=== PATIENT | male | born 1985 | race Caucasian/White ===

== ENCOUNTER 2017-04-01 18:08 | Emergency (ER) | payer OTHER ==
[~2017-04-01] VITALS: Ht 182.9 cm; Wt 91.0 kg
[2017-04-01] MEDS ORDERED: IBUPROFEN 800 MG TABLET PO STA (18:56)
[2017-04-01] MEDS ORDERED: LORazepam 1MG TABLET PO ONE (19:00)
[2017-04-01] MEDS ORDERED: IBUPROFEN 200 MG TABLET PO STA (19:01)
[2017-04-01 19:09] LABS: DAU SCREEN DISCLAIMER
[2017-04-01 19:12] LABS: HEMATOCRIT 45.8 % (39.2-51.8); HEMOGLOBIN 15.4 g/dL (13.7-18.0); WHITE BLOOD COUNT 8.2 x10^3/uL (3.4-10)
[2017-04-01] MEDS ORDERED: LORazepam 1MG TABLET ONE (19:16)
[2017-04-01 19:21] LABS: BLOOD UREA NITROGEN 10 mg/dL (7-18)
[2017-04-01 19:22] LABS: ACETAMINOPHEN < 2 mcg/mL (10-30)
[2017-04-01] MEDS ORDERED: PLEASE ENTER ALLERGIES MC SCH ×2 (19:30)
[2017-04-01 23:38] VITALS: BP 132/89
== END 2017-04-02 02:42 | disposition home or self-care (01) ==
LOC: ED 20:59
DX: F32.9 Major depressive disorder, single episode, unspecified (principal)
CPT/HCPCS: 36415; 80048; 80307; 80329; 81003; 82040; 85025; 99284; G0479; G0480

== ENCOUNTER 2017-04-18 12:55 | Observation (INO) | payer MEDICAID, OTHER ==
[~2017-04-18] VITALS: Ht 182.9 cm; Wt 90.8 kg
[2017-04-18] MEDS ORDERED: SODIUM CHLORIDE 0.9% 1,000 ML IV ONE ×2 (13:11→15:38)
[2017-04-18] MEDS ORDERED: SODIUM CHLORIDE 0.9% 1,000ML IVBOLUS ONE (13:30)
[2017-04-18 13:41] LABS: HEMATOCRIT 43.9 % (39.2-51.8); HEMOGLOBIN 14.7 g/dL (13.7-18.0); WHITE BLOOD COUNT 8.3 x10^3/uL (3.4-10)
[2017-04-18 13:47] LABS: BLOOD UREA NITROGEN 10 mg/dL (7-18)
[2017-04-18 13:50] LABS: ASPARTATE AMINO TRANSFERASE 20 U/L (15-37)
[2017-04-18 13:51] LABS: ACETAMINOPHEN < 2 mcg/mL (10-30)
[2017-04-18] MEDS ORDERED: PRAZ2CAP2 PO (15:16)
[2017-04-18] MEDS ORDERED: CITA20TA5 PO (15:16)
[2017-04-18] MEDS ORDERED: QUET200T PO (15:16)
[2017-04-18] MEDS ORDERED: QUET100T PO (15:16)
[2017-04-18] MEDS ORDERED: LEVE500T8 PO (15:16)
[2017-04-18] MEDS ORDERED: SODIUM CHLORIDE FLUSH 10ML SYR IVF PRN (16:00)
[2017-04-18] MEDS: SODIUM CHLORIDE 0.9% 1,000 ML IV SCH (16:03)
[2017-04-18] MEDS ORDERED: METOCLOPRAMIDE 5 MG/ML, 2ML IVPush PRN (16:30)
[2017-04-18] MEDS ORDERED: ONDANSETRON 2MG/ML, 2ML IVPush PRN (16:30)
[2017-04-18 18:19] LABS: DAU SCREEN DISCLAIMER
[2017-04-18 21:26] VITALS: BP 144/87
[2017-04-19 01:27] VITALS: BP 122/82
[2017-04-19] MEDS: SODIUM CHLORIDE 0.9% 1,000 ML IV SCH ×4 (02:06→21:16)
[2017-04-19 05:19] LABS: HEMOGLOBIN 13.8 g/dL (13.7-18.0); WHITE BLOOD COUNT 9.6 x10^3/uL (3.4-10)
[2017-04-19 05:31] LABS: ASPARTATE AMINO TRANSFERASE 16 U/L (15-37); BLOOD UREA NITROGEN 10 mg/dL (7-18)
[2017-04-19 09:00] VITALS: BP 136/85
[2017-04-19 14:47] VITALS: BP 125/78
[2017-04-19] MEDS: ACETAMINOPHEN 325 MG TABLET PO PRN (16:16)
[2017-04-19 19:40] VITALS: BP 138/74
[2017-04-19] MEDS: KETOROLAC 30 MG/1 ML IVPush PRN (21:16)
[2017-04-20] MEDS ORDERED: morphine SULFATE 10 MG/ML, 1ML IVPush ONE (01:30)
[2017-04-20 03:30] VITALS: BP 129/83
[2017-04-20] MEDS: SODIUM CHLORIDE 0.9% 1,000 ML IV SCH ×3 (03:44→18:22)
[2017-04-20] MEDS: KETOROLAC 30 MG/1 ML IVPush PRN ×4 (03:44→22:36)
[2017-04-20] MEDS ORDERED: POTASSIUM PHOSPHATE 44 MEQ in SODIUM CHLORIDE 0.9% 500 ML IV ONE (07:30)
[2017-04-20] MEDS ORDERED: AZITHROMYCIN 500 MG TABLET PO ONE (07:30)
[2017-04-20 08:12] VITALS: BP 138/88
[2017-04-20 08:19] LABS: HEMOGLOBIN 12.6 g/dL (13.7-18.0); WHITE BLOOD COUNT 9.6 x10^3/uL (3.4-10)
[2017-04-20 08:29] LABS: ASPARTATE AMINO TRANSFERASE 19 U/L (15-37); BLOOD UREA NITROGEN 4 mg/dL (7-18)
[2017-04-20] MEDS: OXYcodone IR 5MG TABLET PO PRN ×3 (08:56→21:02)
[2017-04-20] MEDS: AMPICILLIN/SULBACTAM 3 GM in SODIUM CHLORIDE 0.9% 100 ML IV SCH ×3 (08:56→21:02)
[2017-04-20 12:53] VITALS: BP 149/96
[2017-04-20] MEDS: ACETAMINOPHEN 325 MG TABLET PO PRN (13:09)
[2017-04-20 15:00] LABS: HEMATOCRIT 40.6 % (39.2-51.8); HEMOGLOBIN 13.7 g/dL (13.7-18.0); WHITE BLOOD COUNT 11.3 x10^3/uL (3.4-10)
[2017-04-20 19:01] VITALS: BP 149/80
[2017-04-21] MEDS: SODIUM CHLORIDE 0.9% 1,000 ML IV SCH ×2 (01:16→08:20)
[2017-04-21 02:44] VITALS: BP 143/78
[2017-04-21] MEDS: OXYcodone IR 5MG TABLET PO PRN (03:05)
[2017-04-21] MEDS: AMPICILLIN/SULBACTAM 3 GM in SODIUM CHLORIDE 0.9% 100 ML IV SCH ×2 (03:05→09:00)
[2017-04-21] MEDS: KETOROLAC 30 MG/1 ML IVPush PRN ×2 (05:30→12:18)
[2017-04-21 05:37] LABS: HEMATOCRIT 38.9 % (39.2-51.8); HEMOGLOBIN 13.2 g/dL (13.7-18.0)
[2017-04-21 06:17] LABS: BLOOD UREA NITROGEN 3 mg/dL (7-18)
[2017-04-21 07:36] VITALS: BP 138/85
[2017-04-21] MEDS ORDERED: KETOROLAC 30 MG/1 ML IVPush PRN (09:00)
[2017-04-21] MEDS: AZITHROMYCIN 250 MG TABLET PO SCH (09:10)
[2017-04-21 14:19] VITALS: BP 143/85
[2017-04-21] MEDS: ACETAMINOPHEN 325 MG TABLET PO PRN ×2 (15:34→21:44)
[2017-04-21] MEDS ORDERED: POLYETHYLENE GLYCOL 17 GM PACKET NG PRN (18:30)
[2017-04-21 19:25] VITALS: BP 118/73
[2017-04-21] MEDS: LORazepam 1MG TABLET PO PRN (21:44)
[2017-04-21] MEDS: KETOROLAC 30 MG/1 ML IM PRN (22:20)
[2017-04-22 08:00] VITALS: BP 142/73
[2017-04-22] MEDS: AZITHROMYCIN 250 MG TABLET PO SCH (08:16)
[2017-04-22] MEDS: ACETAMINOPHEN 325 MG TABLET PO PRN ×2 (08:16→15:50)
[2017-04-22] MEDS: LORazepam 1MG TABLET PO PRN ×2 (08:17→15:50)
[2017-04-22] MEDS: BENZONATATE 100 MG CAPSULE PO SCH ×3 (09:00→20:31)
[2017-04-22] MEDS: KETOROLAC 30 MG/1 ML IM PRN ×2 (10:03→15:51)
[2017-04-22] MEDS: LEVETIRACETAM 500 MG TABLET PO SCH ×2 (10:30→20:31)
[2017-04-22] MEDS ORDERED: ALBUTEROL SULFATE 2.5 MG/3 ML NPPB PRN (11:00)
[2017-04-22 19:18] VITALS: BP 134/76
[2017-04-23] MEDS: BENZONATATE 100 MG CAPSULE PO SCH ×3 (07:37→20:19)
[2017-04-23] MEDS: AZITHROMYCIN 250 MG TABLET PO SCH (07:38)
[2017-04-23] MEDS: ACETAMINOPHEN 325 MG TABLET PO PRN (07:38)
[2017-04-23] MEDS: LORazepam 1MG TABLET PO PRN ×2 (07:39→21:01)
[2017-04-23] MEDS: KETOROLAC 30 MG/1 ML IM PRN ×3 (07:39→18:26)
[2017-04-23] MEDS ORDERED: ZIPRASIDONE 20 MG INJ IM PRN ×2 (08:00→19:00)
[2017-04-23 08:10] VITALS: BP 168/80
[2017-04-23] MEDS: LEVETIRACETAM 500 MG TABLET PO SCH ×2 (09:15→20:20)
[2017-04-23] MEDS: ZIPRASIDONE 20MG CAPSULE PO PRN (16:48)
[2017-04-23] MEDS ORDERED: OXYcodone/APAP 10/325MG TABLET PO ONE ×2 (19:00)
[2017-04-23] MEDS ORDERED: POLYETHYLENE GLYCOL 17 GM PACKET NG PRN (19:00)
[2017-04-23 19:29] VITALS: BP 133/76
[2017-04-23] MEDS: ALBUTEROL SULFATE 2.5 MG/3 ML NPPB PRN (19:40)
[2017-04-24 08:15] VITALS: BP 98/65
[2017-04-24] MEDS: BENZONATATE 100 MG CAPSULE PO SCH ×3 (09:00→21:35)
[2017-04-24] MEDS: LEVETIRACETAM 500 MG TABLET PO SCH ×2 (09:00→21:35)
[2017-04-24] MEDS: AZITHROMYCIN 250 MG TABLET PO SCH (09:00)
[2017-04-24] MEDS: ACETAMINOPHEN 325 MG TABLET PO PRN ×2 (12:28→18:21)
[2017-04-24] MEDS: LORazepam 1MG TABLET PO PRN ×2 (12:28→21:35)
[2017-04-24] MEDS: ZIPRASIDONE 20MG CAPSULE PO PRN ×2 (12:28→18:21)
[2017-04-24 18:21] VITALS: BP 124/57
[2017-04-25] MEDS: ZIPRASIDONE 20MG CAPSULE PO PRN ×2 (01:16→22:11)
[2017-04-25] MEDS: ACETAMINOPHEN 325 MG TABLET PO PRN ×3 (01:17→22:11)
[2017-04-25] MEDS: KETOROLAC 30 MG/1 ML IM PRN ×2 (01:26→17:58)
[2017-04-25 08:00] VITALS: BP 116/67
[2017-04-25] MEDS: AZITHROMYCIN 250 MG TABLET PO SCH (09:00)
[2017-04-25] MEDS: BENZONATATE 100 MG CAPSULE PO SCH ×3 (09:54→20:08)
[2017-04-25] MEDS: LEVETIRACETAM 500 MG TABLET PO SCH ×2 (09:54→20:08)
[2017-04-25] MEDS: LORazepam 1MG TABLET PO PRN ×2 (13:06→22:11)
[2017-04-25 19:23] VITALS: BP 123/90
[2017-04-26 08:09] VITALS: BP 116/78
[2017-04-26] MEDS: AZITHROMYCIN 250 MG TABLET PO SCH (08:28)
[2017-04-26] MEDS: LEVETIRACETAM 500 MG TABLET PO SCH ×2 (08:28→21:36)
[2017-04-26] MEDS: BENZONATATE 100 MG CAPSULE PO SCH ×3 (08:28→21:36)
[2017-04-26] MEDS: ACETAMINOPHEN 325 MG TABLET PO PRN (08:49)
[2017-04-26] MEDS: ZIPRASIDONE 20MG CAPSULE PO PRN (14:09)
[2017-04-26] MEDS: LORazepam 1MG TABLET PO PRN ×2 (14:44→21:36)
[2017-04-26 19:56] VITALS: BP 104/61
[2017-04-26] MEDS: ALBUTEROL SULFATE 2.5 MG/3 ML NPPB PRN (22:12)
[2017-04-27] MEDS: ACETAMINOPHEN 325 MG TABLET PO PRN (06:39)
[2017-04-27] MEDS: LORazepam 1MG TABLET PO PRN (06:39)
[2017-04-27 08:00] VITALS: BP 113/61
[2017-04-27] MEDS: LEVETIRACETAM 500 MG TABLET PO SCH (08:23)
[2017-04-27] MEDS: BENZONATATE 100 MG CAPSULE PO SCH (08:24)
[2017-05-01] MEDS ORDERED: QUET200T4 PO (20:05)
[2017-05-02] MEDS ORDERED: CITA20TA9 PO (18:07)
[2017-05-02] MEDS ORDERED: PRAZ5CAP2 PO (18:07)
== END 2017-04-27 15:45 | disposition home or self-care (01) ==
LOC: ED 15:37 → INTOOBSV 15:38 → EDIP 15:38 → ED 15:58 → 5SO 21:06 → 4WST 04-19 19:41 → 3E 04-21 13:40
PROVIDERS: ADMIT Internal Medicine; ATTEND Family Medicine
DX: T43.222A Poisoning by selective serotonin reuptake inhibitors, intentional self-harm, initial encounter (principal); R07.81 Pleurodynia; F31.9 Bipolar disorder, unspecified; F41.1 Generalized anxiety disorder; I10 Essential (primary) hypertension; J18.1 Lobar pneumonia, unspecified organism; Y92.89 Other specified places as the place of occurrence of the external cause; Z91.5 Personal history of self-harm; Z79.899 Other long term (current) drug therapy
CPT/HCPCS: 36415; 71010; 80048; 80053; 80307; 80329; 81003; 83735; 84100; 84443; 85025; 93005; 94640; 96361; 96365; 96366; 96367; 96372; 96375; 96376; 99285; G0378; J0295; J1885; J2270; J7030; J7040; J7613; G0479; G0480

== ENCOUNTER 2017-05-22 09:39 | Emergency (ER) | payer MEDICAID, OTHER ==
[~2017-05-22] VITALS: Ht 185.4 cm; Wt 89.0 kg
[~2017-05-22 09:39] MED LIST: CITA20TA5 PO; CITA20TA9 PO; LEVE500T8 PO; PRAZ2CAP2 PO; PRAZ5CAP2 PO; QUET100T PO; QUET200T PO; QUET200T4 PO
[2017-05-22] MEDS ORDERED: CLON-365 PO (10:14)
[2017-05-22] MEDS ORDERED: ARIP5TAB13 PO (10:14)
[2017-05-22] MEDS ORDERED: PRAZ5CAP2 PO (10:14)
[2017-05-22 11:39] VITALS: BP 130/77
== END 2017-05-22 11:41 | disposition home or self-care (01) ==
LOC: ED 11:07
DX: N48.89 Other specified disorders of penis (principal); G89.11 Acute pain due to trauma
CPT/HCPCS: 99283

== ENCOUNTER 2018-02-02 19:00 | Emergency (ER) | payer SELFPAY ==
[~2018-02-02] VITALS: Ht 182.9 cm; Wt 87.8 kg
[~2018-02-02 19:00] MED LIST changes: +ARIP5TAB13 PO; -CITA20TA5 PO; +CITA20TA6 PO; +CLON1TAB4 PO
[2018-02-02 19:07] VITALS: BP 150/81
[2018-02-02] MEDS ORDERED: SODIUM CHLORIDE 0.9% 1,000ML IVBOLUS ONE (19:30)
[2018-02-02] MEDS ORDERED: ACETAMINOPHEN 500 MG TABLET PO ONE (19:30)
[2018-02-02] MEDS ORDERED: ACETAMINOPHEN 500 MG TABLET ONE (19:57)
[2018-02-02] MEDS ORDERED: CEFTRIAXONE 1,000 MG IM ONE (20:00)
[2018-02-02] MEDS ORDERED: AZITHROMYCIN 500 MG TABLET PO ONE (20:00)
[2018-02-02 20:03] LABS: BASOPHILS # (AUTO) 0.06 x10^3/uL (0-0.1); BASOPHILS % (AUTO) 1 % (0-1); EOSINOPHILS % (AUTO) 1 % (1-7); LYMPHOCYTES # (AUTO) 1.23 x10^3/uL (1-3.4); LYMPHOCYTES % (AUTO) 12 % (22-44); MD NO; MEAN CORPUSCULAR HGB CONC 34.5 g/dL (33.2-36.2); MEAN CORPUSCULAR VOLUME 89.8 fL (81-97); MEAN PLATELET VOLUME 7.2 fL (7.4-10.4); MONOCYTES # (AUTO) 0.59 x10^3/uL (0.2-0.8); MONOCYTES % (AUTO) 6 % (2-9); NEUTROPHILS # (AUTO) 7.97 x10^3/uL (1.8-6.8); NEUTROPHILS % (AUTO) 80 % (42-75); PLATELET COUNT 391 x10^3/uL (130-400); RED BLOOD COUNT 4.48 x10^6/uL (4.38-5.82); RED CELL DISTRIBUTION WIDTH 14.8 % (9.4-14.8)
[2018-02-02] MEDS ORDERED: CEFTRIAXONE 250 MG ONE ×2 (20:09→20:15)
[2018-02-02] MEDS ORDERED: AZITHROMYCIN 500 MG TABLET ONE (20:10)
[2018-02-02] MEDS ORDERED: LIDOCAINE-MPF 1%, 2ML ONE ×2 (20:11→20:15)
[2018-02-02 20:12] LABS: ALBUMIN 3.4 g/dL (3.4-5.0); ANION GAP 7 mmol/L (5-15); CALCIUM 9.7 mg/dL (8.5-10.1); CHLORIDE 108 mmol/L (98-107); CREATININE 1.09 mg/dL (0.7-1.3)
[2018-02-02] MEDS ORDERED: CEFTRIAXONE 250 MG in SODIUM CHLORIDE 0.9% 50 ML IVPB ONE (21:00)
[2018-02-02 21:04] LABS: CULTURE INDICATED? YES; MICROSCOPIC INDICATED
== END 2018-02-02 21:59 | disposition home or self-care (01) ==
LOC: ED 21:53
DX: R31.0 Gross hematuria (principal); F31.9 Bipolar disorder, unspecified; F41.1 Generalized anxiety disorder
CPT/HCPCS: 36415; 80048; 81001; 82040; 85025; 87077; 87086; 87491; 87591; 96365; 99285; J7030; 87186; J0696

== ENCOUNTER 2018-02-05 22:06 | Emergency (ER) | payer MEDICAID ==
[~2018-02-05] VITALS: Ht 182.9 cm; Wt 85.0 kg
[2018-02-05 22:18] VITALS: BP 122/76
[2018-02-05 23:08] LABS: CULTURE INDICATED? YES; MICROSCOPIC INDICATED
[2018-02-05] MEDS ORDERED: KETOROLAC 30 MG/1 ML IM ONE (23:30)
[2018-02-05 23:39] LABS: AMPHETAMINE SCREEN, URINE Negative (Negative); BARBITURATE SCREEN, URINE Negative (Negative); BENZODIAZEPINE SCREEN, URINE Positive (Negative); CANNABINOID SCREEN, URINE Positive (Negative); COCAINE SCREEN, URINE Negative (Negative); METHADONE SCREEN, URINE Negative (Negative); OPIATE SCREEN, URINE Negative (Negative)
[2018-02-05] MEDS ORDERED: KETOROLAC 30 MG/1 ML ONE (23:48)
[2018-02-06 00:08] LABS: ALANINE AMINOTRANSFERASE 62 U/L (12-78); ANION GAP 7 mmol/L (5-15); CALCIUM 10.1 mg/dL (8.5-10.1); CHLORIDE 106 mmol/L (98-107); CREATININE 0.99 mg/dL (0.7-1.3)
[2018-02-06 00:09] LABS: ALKALINE PHOSPHATASE 192 U/L (45-117); BILIRUBIN,TOTAL 0.2 mg/dL (0.2-1.0)
[2018-02-06 00:11] LABS: BASOPHILS # (AUTO) 0.07 x10^3/uL (0-0.1); BASOPHILS % (AUTO) 1 % (0-1); EOSINOPHILS # (AUTO) 0.07 x10^3/uL (0-0.4); EOSINOPHILS % (AUTO) 1 % (1-7); LYMPHOCYTES % (AUTO) 10 % (22-44); MD NO; MEAN CORPUSCULAR HEMOGLOBIN 30.1 pg (27.5-34.5); MEAN CORPUSCULAR HGB CONC 33.9 g/dL (33.2-36.2); MEAN CORPUSCULAR VOLUME 88.8 fL (81-97); MEAN PLATELET VOLUME 6.9 fL (7.4-10.4); MONOCYTES # (AUTO) 0.51 x10^3/uL (0.2-0.8); MONOCYTES % (AUTO) 6 % (2-9); NEUTROPHILS # (AUTO) 7.24 x10^3/uL (1.8-6.8); NEUTROPHILS % (AUTO) 82 % (42-75); PLATELET COUNT 559 x10^3/uL (130-400); RED BLOOD COUNT 5.15 x10^6/uL (4.38-5.82); RED CELL DISTRIBUTION WIDTH 14.4 % (9.4-14.8)
[2018-02-06] MEDS ORDERED: PHENAZOPYRIDINE 200 MG TABLET ONE (00:28)
[2018-02-06] MEDS ORDERED: PHENAZOPYRIDINE 200 MG TABLET PO ONE (00:30)
== END 2018-02-06 02:06 | disposition home or self-care (01) ==
LOC: ED 23:19
DX: R31.0 Gross hematuria (principal); F17.200 Nicotine dependence, unspecified, uncomplicated; Z79.899 Other long term (current) drug therapy
CPT/HCPCS: 36415; 80053; 80307; 81001; 85025; 87086; 96372; 99284; J1885

== ENCOUNTER 2018-02-20 18:19 | Emergency (ER) | payer MEDICAID ==
[~2018-02-20] VITALS: Ht 182.9 cm; Wt 98.2 kg
[2018-02-20] MEDS ORDERED: HYDROmorphone 1 MG/ML, 1ML IM ONE (19:00)
[2018-02-20] MEDS ORDERED: SODIUM CHLORIDE 0.9% 1,000 ML IV ONE (19:13)
[2018-02-20] MEDS ORDERED: SODIUM CHLORIDE FLUSH 10ML SYR IVF ONE (19:30)
[2018-02-20 19:34] LABS: BASOPHILS # (AUTO) 0.02 x10^3/uL (0-0.1); BASOPHILS % (AUTO) 0 % (0-1); EOSINOPHILS # (AUTO) 0.04 x10^3/uL (0-0.4); EOSINOPHILS % (AUTO) 1 % (1-7); LYMPHOCYTES # (AUTO) 0.99 x10^3/uL (1-3.4); LYMPHOCYTES % (AUTO) 12 % (22-44); MD NO; MEAN CORPUSCULAR HEMOGLOBIN 30.9 pg (27.5-34.5); MEAN CORPUSCULAR HGB CONC 34.2 g/dL (33.2-36.2); MEAN CORPUSCULAR VOLUME 90.1 fL (81-97); MEAN PLATELET VOLUME 6.9 fL (7.4-10.4); MONOCYTES # (AUTO) 0.63 x10^3/uL (0.2-0.8); MONOCYTES % (AUTO) 7 % (2-9); NEUTROPHILS # (AUTO) 6.85 x10^3/uL (1.8-6.8); NEUTROPHILS % (AUTO) 80 % (42-75); PLATELET COUNT 489 x10^3/uL (130-400); RED BLOOD COUNT 4.67 x10^6/uL (4.38-5.82); RED CELL DISTRIBUTION WIDTH 15.2 % (9.4-14.8)
[2018-02-20 19:43] LABS: ANION GAP 9 mmol/L (5-15); CALCIUM 9.3 mg/dL (8.5-10.1); CHLORIDE 106 mmol/L (98-107); CREATININE 0.95 mg/dL (0.7-1.3)
[2018-02-20] MEDS ORDERED: LIDOCAINE-MPF 2%, 2ML ONE ×2 (19:44→20:23)
[2018-02-20] MEDS ORDERED: NALOXONE 1 MG/ML, 2ML ONE (20:01)
[2018-02-20] MEDS ORDERED: MIDAZOLAM 1 MG/ML, 5ML ONE ×2 (20:01→20:38)
[2018-02-20] MEDS ORDERED: FLUMAZENIL 0.1 MG/1 ML, 5ML ONE (20:01)
[2018-02-20] MEDS ORDERED: FENTANYL PF 100 MCG/2ML ONE ×2 (20:01→20:38)
[2018-02-20] MEDS ORDERED: VISIPAQUE 270 MG/ML, 50ML BOTTLE ONE (21:11)
[2018-02-20 21:33] LABS: CULTURE INDICATED? NO; MICROSCOPIC NOT IND
[2018-02-20 21:45] VITALS: BP 118/69
== END 2018-02-20 21:56 | disposition home or self-care (01) ==
LOC: ED 20:24
DX: R33.9 Retention of urine, unspecified (principal)
CPT/HCPCS: 36415; 51703; 75989; 80048; 81003; 82040; 85025; 99156; 99157; 99285; C1725; C1769; J2250; J3010; J3490; J7030; Q9966; J2310

== ENCOUNTER 2018-03-12 13:56 | Emergency (ER) | payer MEDICAID ==
[~2018-03-12] VITALS: Ht 177.8 cm; Wt 82.0 kg
[2018-03-12] MEDS ORDERED: LEVE10007 PO (14:41)
[2018-03-12 14:45] LABS: BASOPHILS # (AUTO) 0.02 x10^3/uL (0-0.1); BASOPHILS % (AUTO) 1 % (0-1); EOSINOPHILS # (AUTO) 0.16 x10^3/uL (0-0.4); EOSINOPHILS % (AUTO) 3 % (1-7); LYMPHOCYTES # (AUTO) 1.04 x10^3/uL (1-3.4); LYMPHOCYTES % (AUTO) 20 % (22-44); MD NO; MEAN CORPUSCULAR HEMOGLOBIN 30.3 pg (27.5-34.5); MEAN CORPUSCULAR HGB CONC 34.1 g/dL (33.2-36.2); MEAN CORPUSCULAR VOLUME 89.1 fL (81-97); MEAN PLATELET VOLUME 6.7 fL (7.4-10.4); MONOCYTES # (AUTO) 0.45 x10^3/uL (0.2-0.8); MONOCYTES % (AUTO) 9 % (2-9); NEUTROPHILS # (AUTO) 3.56 x10^3/uL (1.8-6.8); NEUTROPHILS % (AUTO) 68 % (42-75); PLATELET COUNT 387 x10^3/uL (130-400); RED BLOOD COUNT 4.38 x10^6/uL (4.38-5.82); RED CELL DISTRIBUTION WIDTH 15.2 % (9.4-14.8)
[2018-03-12] MEDS ORDERED: ACETAMINOPHEN 500 MG TABLET ONE (14:48)
[2018-03-12 14:57] LABS: ALBUMIN 3.5 g/dL (3.4-5.0); ANION GAP 8 mmol/L (5-15); CHLORIDE 107 mmol/L (98-107); CREATININE 0.97 mg/dL (0.7-1.3)
[2018-03-12] MEDS ORDERED: ACETAMINOPHEN 500 MG TABLET PO ONE (15:00)
[2018-03-12 15:32] LABS: CULTURE INDICATED? YES; MICROSCOPIC INDICATED
[2018-03-12 16:22] VITALS: BP 118/75
== END 2018-03-12 16:42 | disposition home or self-care (01) ==
LOC: ED 15:05
DX: G40.919 Epilepsy, unspecified, intractable, without status epilepticus (principal); F31.9 Bipolar disorder, unspecified; F41.1 Generalized anxiety disorder
CPT/HCPCS: 36415; 70450; 80048; 81001; 82040; 85025; 87086; 93005; 99285

== ENCOUNTER 2018-03-19 10:04 | Inpatient (IN) | payer MEDICAID ==
[~2018-03-19] VITALS: Ht 182.9 cm; Wt 93.0 kg
[~2018-03-19 10:04] MED LIST changes: +LEVE10007 PO
[2018-03-19 12:06] LABS: BASOPHILS # (AUTO) 0.01 x10^3/uL (0-0.1); BASOPHILS % (AUTO) 0 % (0-1); EOSINOPHILS # (AUTO) 0.01 x10^3/uL (0-0.4); EOSINOPHILS % (AUTO) 0 % (1-7); LYMPHOCYTES # (AUTO) 0.89 x10^3/uL (1-3.4); LYMPHOCYTES % (AUTO) 10 % (22-44); MD NO; MEAN CORPUSCULAR HEMOGLOBIN 30.2 pg (27.5-34.5); MEAN CORPUSCULAR HGB CONC 34.1 g/dL (33.2-36.2); MEAN CORPUSCULAR VOLUME 88.6 fL (81-97); MEAN PLATELET VOLUME 7.2 fL (7.4-10.4); MONOCYTES # (AUTO) 0.58 x10^3/uL (0.2-0.8); MONOCYTES % (AUTO) 6 % (2-9); NEUTROPHILS % (AUTO) 84 % (42-75); PLATELET COUNT 365 x10^3/uL (130-400); RED BLOOD COUNT 4.77 x10^6/uL (4.38-5.82); RED CELL DISTRIBUTION WIDTH 14.2 % (9.4-14.8)
[2018-03-19 12:16] LABS: ALBUMIN 3.7 g/dL (3.4-5.0); ANION GAP 9 mmol/L (5-15); CALCIUM 8.9 mg/dL (8.5-10.1); CHLORIDE 107 mmol/L (98-107)
[2018-03-19 12:21] LABS: ALANINE AMINOTRANSFERASE 37 U/L (12-78); ALKALINE PHOSPHATASE 186 U/L (45-117); BILIRUBIN,TOTAL 0.7 mg/dL (0.2-1.0); CREATININE 0.72 mg/dL (0.7-1.3); SALICYLATE LEVEL 2.7 mg/dL (2.8-20.0); TOTAL PROTEIN 8.2 g/dL (6.4-8.2)
[2018-03-19 12:24] LABS: ACETAMINOPHEN < 2 mcg/mL (10-30)
[2018-03-19 14:57] LABS: AMPHETAMINE SCREEN, URINE Positive (Negative); BARBITURATE SCREEN, URINE Negative (Negative); BENZODIAZEPINE SCREEN, URINE Negative (Negative); CANNABINOID SCREEN, URINE Positive (Negative); COCAINE SCREEN, URINE Negative (Negative); METHADONE SCREEN, URINE Negative (Negative); OPIATE SCREEN, URINE Negative (Negative)
[2018-03-19 18:16] LABS: MICROSCOPIC NOT IND
[2018-03-19 18:19] LABS: CULTURE INDICATED? NO
[2018-03-19] MEDS ORDERED: DOCUSATE 100 MG CAPSULE PO PRN (21:00)
[2018-03-19] MEDS ORDERED: ACETAMINOPHEN 325 MG TABLET PO PRN (21:00)
[2018-03-19 21:30] VITALS: BP 127/77
[2018-03-20 08:00] VITALS: BP 97/43
[2018-03-20] MEDS: IBUPROFEN 600 MG TABLET PO PRN (10:16)
[2018-03-20] MEDS: LEVETIRACETAM 500 MG TABLET PO SCH ×2 (11:56→20:09)
[2018-03-20] MEDS: LORazepam 1MG TABLET PO PRN (16:44)
[2018-03-20 19:38] VITALS: BP 109/69
[2018-03-21] MEDS: LORazepam 1MG TABLET PO PRN ×3 (07:53→16:33)
[2018-03-21] MEDS: LEVETIRACETAM 500 MG TABLET PO SCH ×2 (08:07→20:16)
[2018-03-21 08:19] VITALS: BP_SYST 109; BP_SYST 111; BP_DIAS 69; BP_DIAS 70
[2018-03-21] MEDS ORDERED: ZIPRASIDONE 20 MG INJ IM ONE (16:00)
[2018-03-21 20:21] VITALS: BP 106/64
[2018-03-22] MEDS: LEVETIRACETAM 500 MG TABLET PO SCH ×2 (09:00→20:05)
[2018-03-22 09:13] VITALS: BP 105/57
[2018-03-22] MEDS: LORazepam 1MG TABLET PO PRN (13:52)
[2018-03-22] MEDS: IBUPROFEN 600 MG TABLET PO PRN (15:12)
[2018-03-22] MEDS ORDERED: ZIPRASIDONE 20MG CAPSULE PO ONE (19:30)
[2018-03-22 20:00] VITALS: BP 105/70
[2018-03-23 03:03] VITALS: BP 118/76
[2018-03-23] MEDS ORDERED: PSEUDOEPHEDRINE 30 MG TABLET PO ONE ×2 (05:00→14:30)
[2018-03-23 06:57] VITALS: BP 111/70
[2018-03-23] MEDS: IBUPROFEN 600 MG TABLET PO PRN ×2 (08:40→12:44)
[2018-03-23] MEDS: LEVETIRACETAM 500 MG TABLET PO SCH ×2 (08:41→19:46)
[2018-03-23] MEDS: LORazepam 1MG TABLET PO PRN ×3 (08:41→19:46)
[2018-03-23 08:59] LABS: AMPHETAMINE SCREEN, URINE Negative (Negative); BARBITURATE SCREEN, URINE Negative (Negative); BENZODIAZEPINE SCREEN, URINE Negative (Negative); CANNABINOID SCREEN, URINE Positive (Negative); COCAINE SCREEN, URINE Negative (Negative); METHADONE SCREEN, URINE Negative (Negative); OPIATE SCREEN, URINE Negative (Negative)
[2018-03-23] MEDS ORDERED: LORazepam 2 MG/ML, 1ML IVPush ONE (10:30)
[2018-03-23] MEDS ORDERED: MORPHINE SULFATE 4 MG/ML, 1ML IVPush ONE (10:30)
[2018-03-23] MEDS ORDERED: LIDOCAINE-MPF 2%, 2ML ONE ×2 (12:37→14:57)
[2018-03-23 14:11] VITALS: BP 120/70
[2018-03-23] MEDS ORDERED: NALOXONE 1 MG/ML, 2ML ONE (15:24)
[2018-03-23] MEDS ORDERED: MIDAZOLAM 1 MG/ML, 5ML ONE (15:24)
[2018-03-23] MEDS ORDERED: FENTANYL PF 100 MCG/2ML ONE (15:24)
[2018-03-23] MEDS ORDERED: FLUMAZENIL 0.1 MG/1 ML, 5ML ONE (15:24)
[2018-03-23 19:43] VITALS: BP 109/69
[2018-03-23] MEDS: HYDROcodone/APAP 5/325 TABLET PO PRN (19:46)
[2018-03-24] VITALS: BP 111/73
[2018-03-24 04:20] VITALS: BP 119/80
[2018-03-24] MEDS: LORazepam 1MG TABLET PO PRN ×3 (04:25→21:08)
[2018-03-24] MEDS: IBUPROFEN 600 MG TABLET PO PRN (04:25)
[2018-03-24] MEDS: LEVETIRACETAM 500 MG TABLET PO SCH ×2 (07:48→21:05)
[2018-03-24] MEDS: HYDROcodone/APAP 5/325 TABLET PO PRN ×2 (07:48→19:32)
[2018-03-24 08:27] VITALS: BP 100/61
[2018-03-24] MEDS ORDERED: IBUPROFEN 200 MG TABLET PO PRN (10:00)
[2018-03-24] MEDS ORDERED: LIDOCAINE GEL 2%, 5ML TP ONE (10:00)
[2018-03-24 14:31] VITALS: BP 113/67
[2018-03-24] MEDS ORDERED: KETOROLAC 30 MG/1 ML ONE (17:16)
[2018-03-24] MEDS ORDERED: ONDANSETRON 4 MG TABLET ONE (17:17)
[2018-03-24] MEDS: ONDANSETRON ODT 4 MG PO PRN (17:20)
[2018-03-24] MEDS ORDERED: ONDANSETRON 2MG/ML, 2ML IVPush PRN (17:30)
[2018-03-24] MEDS: METHOCARBAMOL 500 MG TABLET PO PRN (18:48)
[2018-03-24 20:18] VITALS: BP 107/60
[2018-03-25 00:15] VITALS: BP 101/66
[2018-03-25] MEDS: KETOROLAC 30 MG/1 ML IVPush PRN ×2 (05:31→17:27)
[2018-03-25] MEDS: LORazepam 1MG TABLET PO PRN ×2 (06:18→16:55)
[2018-03-25] MEDS: LEVETIRACETAM 500 MG TABLET PO SCH ×2 (07:54→20:42)
[2018-03-25] MEDS: HYDROcodone/APAP 5/325 TABLET PO PRN ×2 (07:54→20:43)
[2018-03-25] MEDS: METHOCARBAMOL 500 MG TABLET PO PRN ×2 (07:55→16:55)
[2018-03-25 08:12] VITALS: BP 111/69
[2018-03-25] MEDS: QUETIAPINE 25MG TABLET PO SCH ×2 (11:56→20:42)
[2018-03-25 13:32] VITALS: BP 100/63
[2018-03-25 20:20] VITALS: BP 123/69
[2018-03-25] MEDS: DIPHENHYDRAMINE 25 MG CAPSULE PO PRN (21:58)
[2018-03-25] MEDS: IBUPROFEN 600 MG TABLET PO PRN (22:08)
[2018-03-26 03:57] VITALS: BP 118/68
[2018-03-26] MEDS: LORazepam 1MG TABLET PO PRN ×3 (04:31→21:48)
[2018-03-26] MEDS: KETOROLAC 30 MG/1 ML IVPush PRN (05:34)
[2018-03-26 07:25] VITALS: BP 131/77
[2018-03-26] MEDS: QUETIAPINE 25MG TABLET PO SCH ×2 (08:02→21:47)
[2018-03-26] MEDS: METHOCARBAMOL 500 MG TABLET PO PRN (08:02)
[2018-03-26] MEDS: HYDROcodone/APAP 5/325 TABLET PO PRN ×2 (08:02→21:51)
[2018-03-26] MEDS: LEVETIRACETAM 500 MG TABLET PO SCH ×2 (08:02→21:47)
[2018-03-26 13:35] VITALS: BP 127/65
[2018-03-26] MEDS: IBUPROFEN 600 MG TABLET PO PRN (13:45)
[2018-03-26] MEDS ORDERED: PRAZ2CAP2 PO (14:35)
[2018-03-26] MEDS ORDERED: LEVE750T37 PO (14:35)
[2018-03-26] MEDS ORDERED: QUET300T5 PO (14:35)
[2018-03-26] MEDS ORDERED: LITH300T30 PO (14:35)
[2018-03-26] MEDS ORDERED: CLON1TAB PO (14:35)
[2018-03-26] MEDS ORDERED: QUET100T4 PO (14:35)
[2018-03-26 20:03] VITALS: BP 121/57
[2018-03-26 21:37] VITALS: BP 148/89
[2018-03-27 02:58] VITALS: BP 118/76
[2018-03-27 07:38] VITALS: BP 124/79
[2018-03-27] MEDS: METHOCARBAMOL 500 MG TABLET PO PRN ×2 (08:11→20:21)
[2018-03-27] MEDS: LEVETIRACETAM 500 MG TABLET PO SCH ×2 (08:11→20:20)
[2018-03-27] MEDS: IBUPROFEN 600 MG TABLET PO PRN ×2 (08:11→21:47)
[2018-03-27] MEDS: QUETIAPINE 25MG TABLET PO SCH ×2 (08:11→20:20)
[2018-03-27] MEDS: HYDROcodone/APAP 5/325 TABLET PO PRN (09:43)
[2018-03-27 15:39] VITALS: BP 122/78
[2018-03-27 19:00] VITALS: BP 132/79
[2018-03-27] MEDS: LORazepam 1MG TABLET PO PRN (20:20)
[2018-03-27] MEDS: LIDODERM 5% PATCH TD SCH (21:48)
[2018-03-28 03:27] VITALS: BP 102/63
[2018-03-28] MEDS: METHOCARBAMOL 500 MG TABLET PO PRN ×2 (07:15→21:15)
[2018-03-28] MEDS: IBUPROFEN 600 MG TABLET PO PRN ×2 (07:15→21:15)
[2018-03-28] MEDS: LORazepam 1MG TABLET PO PRN (07:15)
[2018-03-28 07:23] VITALS: BP 121/78
[2018-03-28] MEDS: QUETIAPINE 25MG TABLET PO SCH ×2 (09:07→21:14)
[2018-03-28] MEDS: LEVETIRACETAM 500 MG TABLET PO SCH ×2 (09:07→21:15)
[2018-03-28] MEDS: CITALOPRAM 20 MG TABLET PO SCH (14:32)
[2018-03-28] MEDS: PRAZOSIN 1 MG CAPSULE PO SCH ×2 (14:32→21:00)
[2018-03-28] MEDS: KETOROLAC 30 MG/1 ML IVPush PRN (15:21)
[2018-03-28] MEDS: ONDANSETRON ODT 4 MG PO PRN (15:22)
[2018-03-28 19:30] VITALS: BP 135/83
[2018-03-28] MEDS ORDERED: PRAZOSIN 2 MG CAPSULE ONE (21:08)
[2018-03-28] MEDS: LIDODERM 5% PATCH TD SCH (21:15)
[2018-03-29 03:20] VITALS: BP 110/56
[2018-03-29 07:40] VITALS: BP 152/79
[2018-03-29] MEDS: CITALOPRAM 20 MG TABLET PO SCH (09:21)
[2018-03-29] MEDS: QUETIAPINE 25MG TABLET PO SCH (09:22)
[2018-03-29] MEDS: LEVETIRACETAM 500 MG TABLET PO SCH ×2 (09:22→21:19)
[2018-03-29] MEDS: PRAZOSIN 1 MG CAPSULE PO SCH ×2 (09:22→21:18)
[2018-03-29] MEDS: METHOCARBAMOL 500 MG TABLET PO PRN ×2 (09:31→21:18)
[2018-03-29 14:04] VITALS: BP 112/65
[2018-03-29] MEDS: IBUPROFEN 600 MG TABLET PO PRN ×2 (14:44→21:18)
[2018-03-29 19:12] VITALS: BP 117/65
[2018-03-29] MEDS: QUETIAPINE 100MG TABLET PO SCH (21:00)
[2018-03-29] MEDS ORDERED: QUETIAPINE 25MG TABLET ONE (21:13)
[2018-03-29] MEDS: LIDODERM 5% PATCH TD SCH (21:17)
[2018-03-30 00:36] VITALS: BP 116/56
[2018-03-30 06:50] VITALS: BP 126/79
[2018-03-30] MEDS ORDERED: QUETIAPINE 25MG TABLET PO SCH (09:00)
[2018-03-30] MEDS: LEVETIRACETAM 500 MG TABLET PO SCH ×2 (09:40→19:58)
[2018-03-30] MEDS: METHOCARBAMOL 500 MG TABLET PO PRN (09:40)
[2018-03-30] MEDS: PRAZOSIN 1 MG CAPSULE PO SCH (09:41)
[2018-03-30] MEDS: CITALOPRAM 20 MG TABLET PO SCH (09:41)
[2018-03-30] MEDS: IBUPROFEN 600 MG TABLET PO PRN ×2 (11:19→19:58)
[2018-03-30 13:35] VITALS: BP 111/72
[2018-03-30 19:21] VITALS: BP 116/77
[2018-03-30] MEDS: PRAZOSIN 2 MG CAPSULE PO SCH (20:47)
[2018-03-30] MEDS: QUETIAPINE 100MG TABLET PO SCH (20:47)
[2018-03-30] MEDS: LIDODERM 5% PATCH TD SCH (20:49)
[2018-03-31 00:35] VITALS: BP 102/63
[2018-03-31 06:58] VITALS: BP 118/78
[2018-03-31] MEDS: CITALOPRAM 20 MG TABLET PO SCH (09:21)
[2018-03-31] MEDS: LEVETIRACETAM 500 MG TABLET PO SCH ×2 (09:21→21:21)
[2018-03-31] MEDS: QUETIAPINE 25MG TABLET PO SCH (09:22)
[2018-03-31] MEDS: IBUPROFEN 600 MG TABLET PO PRN (09:22)
[2018-03-31] MEDS: PRAZOSIN 1 MG CAPSULE PO SCH (09:22)
[2018-03-31 12:17] VITALS: BP 106/67
[2018-03-31] MEDS: PHENAZOPYRIDINE 200 MG TABLET PO PRN ×2 (14:08→21:21)
[2018-03-31] MEDS: NAPROXEN 500 MG TABLET PO PRN (16:03)
[2018-03-31 20:51] VITALS: BP 131/82
[2018-03-31] MEDS: LIDODERM 5% PATCH TD SCH (21:21)
[2018-03-31] MEDS: QUETIAPINE 100MG TABLET PO SCH (21:21)
[2018-03-31] MEDS: PRAZOSIN 2 MG CAPSULE PO SCH (21:21)
[2018-04-01 00:41] VITALS: BP 105/66
[2018-04-01] MEDS: NAPROXEN 500 MG TABLET PO PRN ×2 (06:16→20:41)
[2018-04-01 07:05] VITALS: BP 119/87
[2018-04-01] MEDS: LEVETIRACETAM 500 MG TABLET PO SCH ×2 (08:28→20:41)
[2018-04-01] MEDS: CITALOPRAM 20 MG TABLET PO SCH (08:29)
[2018-04-01] MEDS: PRAZOSIN 1 MG CAPSULE PO SCH (08:29)
[2018-04-01] MEDS: PHENAZOPYRIDINE 200 MG TABLET PO PRN (08:29)
[2018-04-01] MEDS: QUETIAPINE 25MG TABLET PO SCH (08:29)
[2018-04-01 11:23] LABS: MICROSCOPIC AUTO
[2018-04-01 11:54] LABS: CULTURE INDICATED? NO
[2018-04-01 13:28] VITALS: BP 114/69
[2018-04-01] MEDS ORDERED: LIDOCAINE 4% CREAM 5GM TUBE TP ONE (14:30)
[2018-04-01] MEDS: METHOCARBAMOL 500 MG TABLET PO PRN (15:22)
[2018-04-01] MEDS: QUETIAPINE 100MG TABLET PO SCH (20:41)
[2018-04-01] MEDS: LIDODERM 5% PATCH TD SCH (20:41)
[2018-04-01] MEDS: PRAZOSIN 2 MG CAPSULE PO SCH (20:41)
[2018-04-01 20:55] VITALS: BP 124/83
[2018-04-02 03:01] VITALS: BP 99/65
[2018-04-02 07:10] VITALS: BP 122/80
[2018-04-02] MEDS: PRAZOSIN 1 MG CAPSULE PO SCH (07:19)
[2018-04-02] MEDS: LEVETIRACETAM 500 MG TABLET PO SCH ×2 (07:19→20:33)
[2018-04-02] MEDS: NAPROXEN 500 MG TABLET PO PRN ×2 (07:19→20:34)
[2018-04-02] MEDS: QUETIAPINE 25MG TABLET PO SCH (07:19)
[2018-04-02] MEDS: CITALOPRAM 20 MG TABLET PO SCH (07:20)
[2018-04-02 07:49] LABS: BASOPHILS # (AUTO) 0.04 x10^3/uL (0-0.1); BASOPHILS % (AUTO) 1 % (0-1); EOSINOPHILS # (AUTO) 0.14 x10^3/uL (0-0.4); EOSINOPHILS % (AUTO) 2 % (1-7); LYMPHOCYTES # (AUTO) 1.46 x10^3/uL (1-3.4); LYMPHOCYTES % (AUTO) 22 % (22-44); MD NO; MEAN CORPUSCULAR HEMOGLOBIN 30.3 pg (27.5-34.5); MEAN CORPUSCULAR HGB CONC 34.2 g/dL (33.2-36.2); MEAN CORPUSCULAR VOLUME 88.4 fL (81-97); MEAN PLATELET VOLUME 6.9 fL (7.4-10.4); MONOCYTES # (AUTO) 0.84 x10^3/uL (0.2-0.8); MONOCYTES % (AUTO) 13 % (2-9); NEUTROPHILS # (AUTO) 4.21 x10^3/uL (1.8-6.8); NEUTROPHILS % (AUTO) 63 % (42-75); PLATELET COUNT 424 x10^3/uL (130-400); RED BLOOD COUNT 4.68 x10^6/uL (4.38-5.82); RED CELL DISTRIBUTION WIDTH 14.6 % (9.4-14.8)
[2018-04-02 08:05] LABS: ALBUMIN 3.9 g/dL (3.4-5.0); ANION GAP 12 mmol/L (5-15); CALCIUM 9.3 mg/dL (8.5-10.1); CHLORIDE 106 mmol/L (98-107); CREATININE 0.77 mg/dL (0.7-1.3)
[2018-04-02] MEDS: PHENAZOPYRIDINE 200 MG TABLET PO PRN ×2 (11:01→20:43)
[2018-04-02] MEDS: METHOCARBAMOL 500 MG TABLET PO PRN ×2 (11:01→20:43)
[2018-04-02 12:47] VITALS: BP 122/74
[2018-04-02 18:55] VITALS: BP 128/77
[2018-04-02] MEDS: QUETIAPINE 100MG TABLET PO SCH (20:33)
[2018-04-02] MEDS: LIDODERM 5% PATCH TD SCH (20:34)
[2018-04-02] MEDS: DIPHENHYDRAMINE 25 MG CAPSULE PO PRN (20:34)
[2018-04-02] MEDS ORDERED: MELATONIN 5 MG TABLET PO SCH (21:00)
[2018-04-03 07:19] VITALS: BP 118/70
[2018-04-03] MEDS: CITALOPRAM 20 MG TABLET PO SCH (09:43)
[2018-04-03] MEDS: PHENAZOPYRIDINE 200 MG TABLET PO PRN (09:43)
[2018-04-03] MEDS: NAPROXEN 500 MG TABLET PO PRN (09:43)
[2018-04-03] MEDS: LEVETIRACETAM 500 MG TABLET PO SCH (09:43)
[2018-04-03 13:25] VITALS: BP 125/62
[2018-04-03] MEDS ORDERED: QUET100T PO (16:16)
[2018-04-03] MEDS ORDERED: MELA5TAB19 PO (16:16)
[2018-04-03] MEDS ORDERED: PHEN-583 PO (16:16)
[2018-04-03] MEDS ORDERED: CITA20TA9 PO (16:16)
== END 2018-04-03 17:45 | disposition home or self-care (01) | DRG 885 ==
LOC: ED 14:27 → EDIP 19:39 → 2N 21:30 → OBSVTOIN 23:01 → 4NOR 03-23 05:40 → 3NE 03-30 17:18
PROVIDERS: ADMIT Internal Medicine; ATTEND Internal Medicine
PROC: 0T9B70Z Drainage of Bladder with Drainage Device, Via Natural or Artificial Opening (ICD-10-PCS; principal; 2018-03-19)
PROC: 0T9B30Z Drainage of Bladder with Drainage Device, Percutaneous Approach (ICD-10-PCS; 2018-03-23)
DX: F31.9 Bipolar disorder, unspecified (principal); N48.30 Priapism, unspecified; R45.851 Suicidal ideations; F15.14 Other stimulant abuse with stimulant-induced mood disorder; F12.90 Cannabis use, unspecified, uncomplicated; F15.10 Other stimulant abuse, uncomplicated; F19.94 Other psychoactive substance use, unspecified with psychoactive substance-induced mood disorder; F60.3 Borderline personality disorder; G40.909 Epilepsy, unspecified, not intractable, without status epilepticus; F43.10 Post-traumatic stress disorder, unspecified; I25.2 Old myocardial infarction; Z91.14 Patient's other noncompliance with medication regimen
CPT/HCPCS: 36415; 51102; 74018; 75989; 76942; 80048; 80053; 80307; 80329; 81001; 81003; 82040; 82962; 83735; 84100; 85025; 99156; 99157; C1725; G0378; J1885; J2250; J3010; J3490; Q0162; C1769; G0480; J2060; J2310; Q0163

== ENCOUNTER 2018-06-01 17:50 | Emergency (ER) | payer MEDICAID ==
[~2018-06-01] VITALS: Ht 182.9 cm; Wt 88.4 kg
[~2018-06-01 17:50] MED LIST changes: +CLON1TAB PO; +CLON1TAB11 PO; -CLON1TAB4 PO; +LEVE750T37 PO; +LITH300T30 PO; +MELA5TAB19 PO; +PHEN-583 PO; +QUET100T4 PO; +QUET300T5 PO
[2018-06-01] MEDS ORDERED: SODIUM CHLORIDE FLUSH 10ML SYR IVF ONE (18:30)
[2018-06-01] MEDS ORDERED: MORPHINE SULFATE 4 MG/ML, 1ML ONE ×2 (18:49→19:59)
[2018-06-01] MEDS ORDERED: ONDANSETRON 2MG/ML, 2ML ONE (18:49)
[2018-06-01 18:52] LABS: BASOPHILS # (AUTO) 0.05 x10^3/uL (0-0.1); BASOPHILS % (AUTO) 1 % (0-1); EOSINOPHILS # (AUTO) 0.01 x10^3/uL (0-0.4); EOSINOPHILS % (AUTO) 0 % (1-7); LYMPHOCYTES % (AUTO) 12 % (22-44); MD NO; MEAN CORPUSCULAR VOLUME 88.1 fL (81-97); MEAN PLATELET VOLUME 7.2 fL (7.4-10.4); MONOCYTES # (AUTO) 0.61 x10^3/uL (0.2-0.8); MONOCYTES % (AUTO) 6 % (2-9); NEUTROPHILS # (AUTO) 8.54 x10^3/uL (1.8-6.8); NEUTROPHILS % (AUTO) 81 % (42-75); PLATELET COUNT 446 x10^3/uL (130-400); RED CELL DISTRIBUTION WIDTH 15.7 % (9.4-14.8)
[2018-06-01] MEDS: MORPHINE SULFATE 4 MG/ML, 1ML IVPush PRN ×2 (18:53→20:02)
[2018-06-01 18:55] LABS: CULTURE INDICATED? YES; MICROSCOPIC INDICATED
[2018-06-01] MEDS ORDERED: ONDANSETRON 2MG/ML, 2ML IVPush ONE (19:00)
[2018-06-01 19:02] LABS: ALANINE AMINOTRANSFERASE 89 U/L (12-78); ALBUMIN 4.1 g/dL (3.4-5.0); ANION GAP 10 mmol/L (5-15); CALCIUM 9.6 mg/dL (8.5-10.1); CHLORIDE 106 mmol/L (98-107); CREATININE 1.15 mg/dL (0.7-1.3)
[2018-06-01 19:05] LABS: ALKALINE PHOSPHATASE 182 U/L (45-117); BILIRUBIN,TOTAL 1.1 mg/dL (0.2-1.0); TOTAL PROTEIN 8.4 g/dL (6.4-8.2)
[2018-06-01 21:53] LABS: SALICYLATE LEVEL < 1.7 mg/dL (2.8-20.0)
[2018-06-01 21:54] LABS: ACETAMINOPHEN < 2 mcg/mL (10-30)
[2018-06-01] MEDS ORDERED: FOSFOMYCIN 3 GM PACKET PO ONE (22:00)
[2018-06-01 22:21] LABS: AMPHETAMINE SCREEN, URINE Positive (Negative); BARBITURATE SCREEN, URINE Negative (Negative); BENZODIAZEPINE SCREEN, URINE Negative (Negative); CANNABINOID SCREEN, URINE Positive (Negative); COCAINE SCREEN, URINE Negative (Negative); METHADONE SCREEN, URINE Negative (Negative); OPIATE SCREEN, URINE Negative (Negative)
[2018-06-01 23:20] VITALS: BP 149/72
== END 2018-06-02 00:43 | disposition left against medical advice (07) ==
LOC: ED 20:09
DX: N30.00 Acute cystitis without hematuria (principal); F31.9 Bipolar disorder, unspecified; F17.200 Nicotine dependence, unspecified, uncomplicated
CPT/HCPCS: 36415; 74176; 80053; 80307; 80329; 81001; 85025; 87077; 87086; 87186; 96374; 96375; 96376; 99284; J2405; G0480

== ENCOUNTER 2018-06-22 01:44 | Emergency (ER) | payer SELFPAY ==
[~2018-06-22] VITALS: Ht 182.9 cm; Wt 89.0 kg
[2018-06-22 01:45] VITALS: BP 134/85
[2018-06-22] MEDS ORDERED: LORazepam 1MG TABLET PO ONE (02:00)
[2018-06-22 02:06] LABS: BASOPHILS # (AUTO) 0.04 x10^3/uL (0-0.1); BASOPHILS % (AUTO) 1 % (0-1); EOSINOPHILS # (AUTO) 0.11 x10^3/uL (0-0.4); EOSINOPHILS % (AUTO) 1 % (1-7); LYMPHOCYTES # (AUTO) 1.41 x10^3/uL (1-3.4); LYMPHOCYTES % (AUTO) 16 % (22-44); MD NO; MEAN CORPUSCULAR HEMOGLOBIN 30.1 pg (27.5-34.5); MEAN CORPUSCULAR HGB CONC 34.2 g/dL (33.2-36.2); MEAN CORPUSCULAR VOLUME 87.8 fL (81-97); MEAN PLATELET VOLUME 7.1 fL (7.4-10.4); MONOCYTES # (AUTO) 0.96 x10^3/uL (0.2-0.8); MONOCYTES % (AUTO) 11 % (2-9); NEUTROPHILS # (AUTO) 6.42 x10^3/uL (1.8-6.8); NEUTROPHILS % (AUTO) 72 % (42-75); PLATELET COUNT 417 x10^3/uL (130-400); RED BLOOD COUNT 4.97 x10^6/uL (4.38-5.82); RED CELL DISTRIBUTION WIDTH 15.2 % (9.4-14.8)
[2018-06-22 02:18] LABS: ALBUMIN 4.2 g/dL (3.4-5.0); ANION GAP 13 mmol/L (5-15); CALCIUM 9.3 mg/dL (8.5-10.1); CHLORIDE 104 mmol/L (98-107)
[2018-06-22] MEDS ORDERED: LORazepam 1MG TABLET ONE (02:18)
[2018-06-22 02:20] LABS: ALANINE AMINOTRANSFERASE 51 U/L (12-78); ALKALINE PHOSPHATASE 170 U/L (45-117); BILIRUBIN,TOTAL 1.2 mg/dL (0.2-1.0); CREATININE 0.94 mg/dL (0.7-1.3); SALICYLATE LEVEL < 1.7 mg/dL (2.8-20.0); TOTAL PROTEIN 8.5 g/dL (6.4-8.2)
[2018-06-22 02:21] LABS: ACETAMINOPHEN < 2 mcg/mL (10-30)
[2018-06-22] MEDS ORDERED: PLEASE ENTER HEIGHT AND WEIGHT MC SCH (02:30)
[2018-06-22 02:46] LABS: AMPHETAMINE SCREEN, URINE Positive (Negative); BARBITURATE SCREEN, URINE Negative (Negative); BENZODIAZEPINE SCREEN, URINE Negative (Negative); CANNABINOID SCREEN, URINE Positive (Negative); COCAINE SCREEN, URINE Negative (Negative); METHADONE SCREEN, URINE Negative (Negative); OPIATE SCREEN, URINE Positive (Negative)
== END 2018-06-22 04:33 ==
LOC: ED 01:49
DX: F41.1 Generalized anxiety disorder (principal); F15.229 Other stimulant dependence with intoxication, unspecified; Z72.9 Problem related to lifestyle, unspecified; F32.9 Major depressive disorder, single episode, unspecified
CPT/HCPCS: 36415; 80053; 80307; 80329; 85025; 99284; G0480

== ENCOUNTER 2018-06-28 06:19 | Emergency (ER) | payer OTHER ==
[~2018-06-28] VITALS: Ht 185.4 cm; Wt 86.4 kg
--- NOTE | 2018-06-28 06:28 | NUR ---
NUHA ABARCA FROM CORRECTION FOR C/O BILAT FLANK PAIN AND BLOOD IN URINE X 12 HOURS. PT. STATES "I KNOW I HAVE A UTI BUT I QUIT TAKING MY ABX (MACROBID) BECAUSE IT GAVE ME A RASH SO I THREW IT AWAY". SP CATH IN PLACE BUT IS CAPPED. PT. REPORTS ABILTIY TO VOID THROUGH PENIS. PT. DID AMBULATE TO ROOM FROM AMBULANCE BAY WITH STEADY GAIT. PT. PLACED ON CONTINUOUS PULSE OX AND B/P MONITORS AND URINE SAMPLE REQUESTED. SP CATH SIDE WITH CRUSTED, BROWN, FOUL SMELING DISCHARGE.
--- NOTE | 2018-06-28 07:04 | NUR ---
REPORT TO SCOT VALENTIN.
[2018-06-28] MEDS ORDERED: KETOROLAC 30 MG/1 ML IVPush ONE (07:30)
[2018-06-28] MEDS ORDERED: ONDANSETRON 2MG/ML, 2ML IVPush ONE (07:30)
--- NOTE | 2018-06-28 07:45 | NUR ---
SPOT MAN: PT'S SUPRAPUBIC CATH ASSESSED BY MD KELLER W/ DEON RN AT BEDSIDE, TO ORDER IR CATH CHANGE. PT IN BED, NAD, CALL LIGHT IN REACH
--- NOTE | 2018-06-28 07:45 | NUR ---
Note charly in EDM - 06/28/18 at 0800 by LUIS DANIEL SHIPPING MANAGER: PT'S SUPRAPUBIC CATH ASSESSED BY MD ARIANNA Matthew/ DEON RN AT BEDSIDE, TO ORDER IR CATH CHANGE. PT IN BED, NAD, REQUESTING PAIN MEDS, NO NEW ORDERS AT THIS TIME, CALL LIGHT IN REACH
[2018-06-28] MEDS ORDERED: ONDANSETRON 2MG/ML, 2ML ONE (08:10)
[2018-06-28] MEDS ORDERED: HYDROmorphone 2 MG/ML, 1ML ONE (08:10)
--- NOTE | 2018-06-28 08:16 | NUR ---
PT. REMAINS A & O X 4 WITH C/O URINARY AND S/P CATH PROBLEMS. PT. REFUSED THE LAB DRAWING HIS BLOOD. IV ACCESS ESTABLISHED X 1 STICK. LABS WERE OBTAINED FROM THE IV START. PT. STATES HE IS ALLERGIC TO "TORDAL". DISCUSSED WITH JJ PROVIDER. ORDERS RECEIVED FOR PAIN MEDS. PT. WAS MEDICATED WITH DILAUDID ORDERED. PT. QUESTIONED SCOT FRANZ ON THE MG STRENGTH OF THE DILAUDID. RN INFORMED THE PT. THAT HE WAS GETTING 1 MG DILAUDID ORDERED.
--- NOTE | 2018-06-28 08:25 | NUR ---
PT. REMOVED HIS PULSE OX. RN EXPLAINED TO THE PT. THAT MEDICAL EQUIPTMENT NEEDS TO BE LEFT IN PLACE FOR PROPER MONITORING TO BE DONE. CALL LIGHT IN PLACE AND SIDERAILS UP X 2. PT. 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
[2018-06-28] MEDS ORDERED: HYDROmorphone 1 MG/ML, 1ML IV ONE (08:30)
[2018-06-28 08:32] LABS: CULTURE INDICATED? YES; MICROSCOPIC INDICATED
[2018-06-28 08:33] LABS: ANION GAP 8 mmol/L (5-15); CALCIUM 8.9 mg/dL (8.5-10.1); CHLORIDE 110 mmol/L (98-107)
[2018-06-28 08:43] LABS: AMPHETAMINE SCREEN, URINE Negative (Negative); BARBITURATE SCREEN, URINE Negative (Negative); BENZODIAZEPINE SCREEN, URINE Negative (Negative); CANNABINOID SCREEN, URINE Positive (Negative); COCAINE SCREEN, URINE Negative (Negative); METHADONE SCREEN, URINE Negative (Negative); OPIATE SCREEN, URINE Negative (Negative)
[2018-06-28] MEDS ORDERED: FENTANYL PF 100 MCG/2ML ONE ×2 (09:23)
[2018-06-28] MEDS ORDERED: MIDAZOLAM 1 MG/ML, 5ML ONE (09:23)
[2018-06-28] MEDS ORDERED: FLUMAZENIL 0.1 MG/1 ML, 5ML ONE (09:24)
[2018-06-28] MEDS ORDERED: NALOXONE 1 MG/ML, 2ML ONE (09:24)
[2018-06-28 09:28] LABS: BASOPHILS # (AUTO) 0.02 x10^3/uL (0-0.1); BASOPHILS % (AUTO) 0 % (0-1); EOSINOPHILS # (AUTO) 0.24 x10^3/uL (0-0.4); EOSINOPHILS % (AUTO) 4 % (1-7); LYMPHOCYTES # (AUTO) 1.09 x10^3/uL (1-3.4); LYMPHOCYTES % (AUTO) 17 % (22-44); MD NO; MEAN CORPUSCULAR HEMOGLOBIN 30.3 pg (27.5-34.5); MEAN CORPUSCULAR HGB CONC 34.1 g/dL (33.2-36.2); MEAN CORPUSCULAR VOLUME 88.7 fL (81-97); MEAN PLATELET VOLUME 8.1 fL (7.4-10.4); MONOCYTES # (AUTO) 0.66 x10^3/uL (0.2-0.8); MONOCYTES % (AUTO) 10 % (2-9); NEUTROPHILS # (AUTO) 4.35 x10^3/uL (1.8-6.8); NEUTROPHILS % (AUTO) 69 % (42-75); PLATELET COUNT 345 x10^3/uL (130-400); RED BLOOD COUNT 4.79 x10^6/uL (4.38-5.82); RED CELL DISTRIBUTION WIDTH 15.8 % (9.4-14.8)
[2018-06-28] MEDS ORDERED: LIDOCAINE-MPF 1%, 5ML ONE (09:38)
--- NOTE | 2018-06-28 09:43 | NUR ---
PT. IS IN IR AT THIS TIME.
--- NOTE | 2018-06-28 09:53 | NUR ---
REPORT TO JUAN JOSE ELLISON.
[2018-06-28] MEDS ORDERED: VISIPAQUE 270 MG/ML, 50ML BOTTLE ONE (09:55)
--- NOTE | 2018-06-28 10:06 | NUR ---
Report from SCOT Gaston. Patient in IR.
--- NOTE | 2018-06-28 11:29 | NUR ---
SOUTH RN ASSISTING PRIMARY RN JUAN JOSE. PT BACK FROM IR. CARDIAC, BP, PULSE OX MONITORS APPLIED. HR 45-55 SINUS JEFF ON MONITOR. ROLLER AT BEDSIDE FOR EKG. DISCUSSED HR/VITALS WITH DR. KELLER AND MANAV BRADLEY, BOTH AWARE, "CONTINUE TO MONITOR PATIENT'S VITALS." NO ADDITIONAL ORDERS RECEIVED AT THIS TIME. PT AWAKE, DROWSY, ANSWERING QUESTIONS APPROPRIATELY. REPORTS LOW BACK PAIN AND ABD PAIN, DISCUSSED WITH MANAV BRADLEY, NO ORDERS RECEIVED FOR PAIN. PT REPOSITIONED FOR COMFORT. DISCUSSED WITH PRIMARY RN JUAN JOSE AT BEDSIDE, AWARE, REPORT AND CARE BACK TO PRIMARY RN. SUPRAPUBIC CATHETER IN PLACE FROM IR, DRESSING CDI, DRAINING PROPERLY INTO DRAINAGE BAG.
--- NOTE | 2018-06-28 12:12 | NUR ---
Resting in [facility]. HR decreases to 40-50s while sleeping. Increases to 80s when awake.
[2018-06-28 12:35] VITALS: BP 125/74
--- NOTE | 2018-06-28 12:54 | NUR ---
Patient/Caregiver given discharge instructions and they have confirmed that they understand the instructions. Patient ambulatory with steady gait.
== END 2018-06-28 12:55 | disposition home or self-care (01) ==
LOC: ED 07:40
DX: N30.01 Acute cystitis with hematuria (principal); F17.200 Nicotine dependence, unspecified, uncomplicated
CPT/HCPCS: 36415; 51710; 75984; 80048; 80307; 81001; 85025; 87086; 93005; 96374; 96375; 99156; 99157; 99285; C1729; C1769; J1170; J2250; J2405; J3010; Q9966; 99284; J2310

== ENCOUNTER 2018-07-16 19:22 | Emergency (ER) | payer SELFPAY ==
[~2018-07-16] VITALS: Ht 170.2 cm; Wt 75.0 kg
[2018-07-16] MEDS ORDERED: LORazepam 1MG TABLET PO ONE (19:30)
[2018-07-16 19:51] VITALS: BP 138/88
[2018-07-16 19:51] LABS: BASOPHILS # (AUTO) 0.02 x10^3/uL (0-0.1); BASOPHILS % (AUTO) 0 % (0-1); EOSINOPHILS # (AUTO) 0.18 x10^3/uL (0-0.4); EOSINOPHILS % (AUTO) 2 % (1-7); LYMPHOCYTES # (AUTO) 1.31 x10^3/uL (1-3.4); LYMPHOCYTES % (AUTO) 16 % (22-44); MD NO; MEAN CORPUSCULAR HEMOGLOBIN 30.5 pg (27.5-34.5); MEAN CORPUSCULAR HGB CONC 34.1 g/dL (33.2-36.2); MEAN CORPUSCULAR VOLUME 89.5 fL (81-97); MEAN PLATELET VOLUME 7.7 fL (7.4-10.4); MONOCYTES # (AUTO) 0.82 x10^3/uL (0.2-0.8); MONOCYTES % (AUTO) 10 % (2-9); NEUTROPHILS # (AUTO) 5.74 x10^3/uL (1.8-6.8); NEUTROPHILS % (AUTO) 71 % (42-75); PLATELET COUNT 373 x10^3/uL (130-400); RED BLOOD COUNT 4.64 x10^6/uL (4.38-5.82); RED CELL DISTRIBUTION WIDTH 14.8 % (9.4-14.8)
[2018-07-16 19:55] LABS: ALBUMIN 3.8 g/dL (3.4-5.0); ANION GAP 9 mmol/L (5-15); CALCIUM 8.8 mg/dL (8.5-10.1); CHLORIDE 106 mmol/L (98-107)
[2018-07-16 19:58] LABS: CREATININE 0.79 mg/dL (0.7-1.3)
[2018-07-16] MEDS ORDERED: PLEASE ENTER HEIGHT AND WEIGHT MC SCH (20:00)
[2018-07-16 20:01] LABS: ACETAMINOPHEN < 2 mcg/mL (10-30); SALICYLATE LEVEL < 1.7 mg/dL (2.8-20.0)
--- NOTE | 2018-07-16 20:29 | NUR ---
UA SENT FOR DRUG SCREEN FROM SUPRAPUBIC CATH, PA AND LAB NOTIFIED A SECOND SAMPLE WILL BE SEND FOR A MORE ACCURATE UA DUE TO INITAL CLOUDY URINE OUTPUT FROM CATH. PT HAS IT CLAMPED OFF, STATES HE JUST DRAINES IT WHEN HE NEEDS TO, PT REFUSED NEED FOR A BAG FROM RN.
[2018-07-16 20:36] LABS: AMPHETAMINE SCREEN, URINE Positive (Negative); BARBITURATE SCREEN, URINE Negative (Negative); BENZODIAZEPINE SCREEN, URINE Negative (Negative); CANNABINOID SCREEN, URINE Positive (Negative); COCAINE SCREEN, URINE Negative (Negative); METHADONE SCREEN, URINE Negative (Negative); OPIATE SCREEN, URINE Negative (Negative)
[2018-07-16] MEDS ORDERED: LORazepam 1MG TABLET ONE (20:38)
--- NOTE | 2018-07-16 21:41 | NUR ---
Throughput note: Telepsych called.
--- NOTE | 2018-07-16 22:13 | NUR ---
TELEPSYCH MONITOR ON FOR TESTING, PT REFUSING TO TAKE BLANKET OFF HEAD. BLANKET REMOVED AND PT ENCOURAGED TO COOPERATE. PT STATES WHEN THE MD IS ON THE CAMERA HE WILL TALK TO HIM.
--- NOTE | 2018-07-16 22:13 | NUR ---
SECOND UA SENT FOR CULTURES, UA APPEARS LESS CLOUDY THAN INITAL SENT FOR DOA
--- NOTE | 2018-07-16 22:44 | NUR ---
PER ER MD AND TELEPSYCH PT TO BE DISCHARGED. PT ENCOURAGED TO STOP USING METH. PT GIVEN RESOURCE SHEET FOR PSYCHIATRIC HELP AND SUBSTANCE ABUSE HELP. PT UNHAPPY WITH RN, STATING, "NO ONE IS GOING TO SAVE MY LIFE" PT ENCOURAGED AGAIN TO STOP USING METH AND SEEK HELP FOR SUBSTANCE ABUSE AND DEPRESSION. PT GIVEN TAXI VOUCHER TO [facility] FOR SAFE DC.
== END 2018-07-16 23:06 | disposition home or self-care (01) ==
LOC: ED 21:19
DX: F33.9 Major depressive disorder, recurrent, unspecified (principal); F15.10 Other stimulant abuse, uncomplicated; R45.1 Restlessness and agitation
CPT/HCPCS: 36415; 80048; 80307; 80329; 82040; 85025; 99284; G0480

== ENCOUNTER 2018-07-19 00:39 | Emergency (ER) | payer SELFPAY ==
[~2018-07-19] VITALS: Ht 182.9 cm; Wt 90.0 kg
[2018-07-19] MEDS ORDERED: NAPROXEN 500 MG TABLET PO ONE (01:00)
[2018-07-19] MEDS ORDERED: ALBUTEROL/IPRATROPIUM 2.5MG/0.5MG, 3 ML NPPB ONE (01:00)
[2018-07-19] MEDS ORDERED: ALBUTEROL SULFATE 2.5 MG/3 ML ONE (01:09)
[2018-07-19] MEDS ORDERED: NAPROXEN 500 MG TABLET ONE (01:16)
--- NOTE | 2018-07-19 01:32 | NUR ---
PT HERE FOR SOB. PT MEDICATED FOR DISCOMFORT. VSS. RT AT BEDSIDE. PT GOVEN SNACK AND JUICE, CALL LIGHT IN REACH
[2018-07-19 02:00] VITALS: BP 137/60
--- NOTE | 2018-07-19 02:19 | NUR ---
Patient given discharge instructions and they have confirmed that they understand the instructions. Patient ambulatory with steady gait.
== END 2018-07-19 02:20 | disposition home or self-care (01) ==
LOC: ED 00:56
DX: J06.9 Acute upper respiratory infection, unspecified (principal); B34.9 Viral infection, unspecified; F17.200 Nicotine dependence, unspecified, uncomplicated; F41.1 Generalized anxiety disorder; F31.9 Bipolar disorder, unspecified; F39 Unspecified mood [affective] disorder
CPT/HCPCS: 71045; 93005; 94640; 99283; J7620

== ENCOUNTER 2018-07-19 08:16 | Emergency (ER) | payer SELFPAY ==
[~2018-07-19] VITALS: Ht 182.9 cm; Wt 91.0 kg
[2018-07-19 08:25] VITALS: BP 114/75
[2018-07-19] MEDS ORDERED: PHENAZOPYRIDINE 200 MG TABLET PO ONE (09:00)
[2018-07-19] MEDS ORDERED: PHENAZOPYRIDINE 200 MG TABLET ONE ×2 (09:12→09:31)
--- NOTE | 2018-07-19 10:07 | NUR ---
PATIENT REFUSING NEW LEG BAG TO BE ATTACHTED TO HIS SUPRAPUBIC CATHETER AT THIS TIME. PATIENT REFUSING PYRIDIUM.
[2018-07-19 10:11] LABS: CULTURE INDICATED? YES; MICROSCOPIC INDICATED
[2018-07-19 10:47] LABS: AMPHETAMINE SCREEN, URINE Positive (Negative); BARBITURATE SCREEN, URINE Negative (Negative); BENZODIAZEPINE SCREEN, URINE Negative (Negative); CANNABINOID SCREEN, URINE Positive (Negative); COCAINE SCREEN, URINE Negative (Negative); METHADONE SCREEN, URINE Negative (Negative); OPIATE SCREEN, URINE Negative (Negative)
--- NOTE | 2018-07-19 11:30 | NUR ---
APPLIED NEW STERILE DRESSING TO SUPRAPUBIC CATHETER SITE AND ATTACHED LEG BAG WITH LEUR LOCK ONTO DURAND CATHETER. ATTACHED LEG BAG TO PATIENT'S RIGHT LEG.
--- NOTE | 2018-07-19 11:45 | NUR ---
Patient/Caregiver given discharge instructions and they have confirmed that they understand the instructions. Patient ambulatory with steady gait.
== END 2018-07-19 12:28 | disposition home or self-care (01) ==
LOC: ED 10:01
DX: N39.0 Urinary tract infection, site not specified (principal); F12.10 Cannabis abuse, uncomplicated; F15.10 Other stimulant abuse, uncomplicated; F41.1 Generalized anxiety disorder; F31.9 Bipolar disorder, unspecified; F39 Unspecified mood [affective] disorder; Z72.9 Problem related to lifestyle, unspecified
CPT/HCPCS: 80307; 81001; 87086; 99283

== ENCOUNTER 2018-07-20 16:18 | Emergency (ER) | payer SELFPAY ==
[~2018-07-20] VITALS: Ht 182.9 cm; Wt 88.0 kg
--- NOTE | 2018-07-20 16:20 | NUR ---
PATIENT WAS AT NURSING HOME AND CALLED EMS FOR 10/10 OF CHEST PAIN. HE HAS SOME PAIN WHEN HE BREATHES. HE IS IN BED, EKG IN PROGRESS.
[2018-07-20] MEDS ORDERED: KETOROLAC 30 MG/1 ML ONE (16:56)
[2018-07-20] MEDS ORDERED: KETOROLAC 60 MG/2 ML IM ONE (17:00)
[2018-07-20 17:18] LABS: BASOPHILS # (AUTO) 0.02 x10^3/uL (0-0.1); BASOPHILS % (AUTO) 0 % (0-1); EOSINOPHILS # (AUTO) 0.33 x10^3/uL (0-0.4); EOSINOPHILS % (AUTO) 4 % (1-7); LYMPHOCYTES # (AUTO) 1.35 x10^3/uL (1-3.4); LYMPHOCYTES % (AUTO) 16 % (22-44); MD NO; MEAN CORPUSCULAR HEMOGLOBIN 30.6 pg (27.5-34.5); MEAN PLATELET VOLUME 7.8 fL (7.4-10.4); MONOCYTES # (AUTO) 0.58 x10^3/uL (0.2-0.8); MONOCYTES % (AUTO) 7 % (2-9); NEUTROPHILS # (AUTO) 6.07 x10^3/uL (1.8-6.8); NEUTROPHILS % (AUTO) 73 % (42-75); PLATELET COUNT 371 x10^3/uL (130-400); RED BLOOD COUNT 4.59 x10^6/uL (4.38-5.82)
[2018-07-20 17:22] VITALS: BP_DIAS 78
[2018-07-20 17:31] LABS: ALBUMIN 3.5 g/dL (3.4-5.0); ANION GAP 7 mmol/L (5-15); CALCIUM 8.7 mg/dL (8.5-10.1); CHLORIDE 109 mmol/L (98-107)
[2018-07-20 17:37] LABS: CREATININE 0.63 mg/dL (0.7-1.3); TROPONIN I < 0.015 ng/mL (0.000-0.045)
[2018-07-20 18:15] VITALS: BP_SYST 123
--- NOTE | 2018-07-20 18:23 | NUR ---
d/c teaching reviewed. got him a cab voucher to go to [facility]. patient left
== END 2018-07-20 18:25 | disposition home or self-care (01) ==
LOC: ED 18:10
DX: J06.9 Acute upper respiratory infection, unspecified (principal); R07.9 Chest pain, unspecified; F41.1 Generalized anxiety disorder; F31.9 Bipolar disorder, unspecified; F39 Unspecified mood [affective] disorder; Z72.9 Problem related to lifestyle, unspecified
CPT/HCPCS: 36415; 71046; 80048; 82040; 84484; 85025; 85379; 93005; 99284

== ENCOUNTER 2018-08-28 17:45 | Emergency (ER) | payer MEDICAID, OTHER ==
[~2018-08-28] VITALS: Ht 182.9 cm; Wt 82.0 kg
[~2018-08-28 17:45] MED LIST changes: +QUET25TA7 PO
[2018-08-28] MEDS ORDERED: ALBUTEROL/IPRATROPIUM 2.5MG/0.5MG, 3 ML NPPB ONE (18:30)
[2018-08-28 18:48] LABS: ALANINE AMINOTRANSFERASE 32 U/L (12-78); ALBUMIN 3.7 g/dL (3.4-5.0); ANION GAP 5 mmol/L (5-15); CALCIUM 9.1 mg/dL (8.5-10.1); CHLORIDE 109 mmol/L (98-107); CREATININE 0.71 mg/dL (0.7-1.3)
[2018-08-28 18:50] LABS: ALKALINE PHOSPHATASE 155 U/L (45-117); BILIRUBIN,TOTAL 0.3 mg/dL (0.2-1.0); TOTAL PROTEIN 8.5 g/dL (6.4-8.2)
[2018-08-28 18:54] LABS: BASOPHILS # (AUTO) 0.01 x10^3/uL (0-0.1); BASOPHILS % (AUTO) 0 % (0-1); EOSINOPHILS % (AUTO) 0 % (1-7); LYMPHOCYTES # (AUTO) 0.66 x10^3/uL (1-3.4); LYMPHOCYTES % (AUTO) 7 % (22-44); MD NO; MEAN CORPUSCULAR HEMOGLOBIN 30.6 pg (27.5-34.5); MEAN CORPUSCULAR VOLUME 89.9 fL (81-97); MEAN PLATELET VOLUME 7.6 fL (7.4-10.4); MONOCYTES # (AUTO) 0.36 x10^3/uL (0.2-0.8); MONOCYTES % (AUTO) 4 % (2-9); NEUTROPHILS # (AUTO) 8.33 x10^3/uL (1.8-6.8); NEUTROPHILS % (AUTO) 89 % (42-75); PLATELET COUNT 488 x10^3/uL (130-400); RED BLOOD COUNT 4.76 x10^6/uL (4.38-5.82); RED CELL DISTRIBUTION WIDTH 14.3 % (9.4-14.8)
--- NOTE | 2018-08-28 20:01 | NUR ---
PT TO ROOM FROM LOBBY
[2018-08-28] MEDS ORDERED: ALBUTEROL/IPRATROPIUM 2.5MG/0.5MG, 3 ML ONE (20:09)
--- NOTE | 2018-08-28 20:20 | NUR ---
UNABLE TO GET EKG ON PATIENT. PATIENT WOULDNT STAY STILL LONG ENOUGH FOR ME TO ATTACH EKG STICKERS.
--- NOTE | 2018-08-28 20:30 | NUR ---
UA SENT TO LAB. RT AT BEDSIDE. VSS. FAMILY AT BEDSIDE
[2018-08-28 20:36] VITALS: BP 122/77
[2018-08-28 20:41] LABS: MICROSCOPIC NOT IND
[2018-08-28 20:51] LABS: CULTURE INDICATED? NO
[2018-08-28] MEDS ORDERED: HYDROmorphone 1 MG/ML, 1ML IM ONE (21:00)
[2018-08-28] MEDS ORDERED: HYDROmorphone 1 MG/ML, 1ML ONE (21:00)
--- NOTE | 2018-08-28 21:41 | NUR ---
PT MEDICATED FOR PAIN. VSS. WAITING FOR CT RESULTS. CALL LIGHT IN REACH
--- NOTE | 2018-08-28 21:56 | NUR ---
REPORT TO RON ELLISON
[2018-08-28] MEDS ORDERED: DEXAMETHASONE 4 MG/ML, 5ML ONE (22:25)
[2018-08-28] MEDS ORDERED: DEXAMETHASONE 4 MG/ML, 1ML PO ONE (22:30)
== END 2018-08-28 22:50 | disposition home or self-care (01) ==
LOC: ED 20:30
DX: J02.9 Acute pharyngitis, unspecified (principal); N30.00 Acute cystitis without hematuria; F31.9 Bipolar disorder, unspecified; F41.1 Generalized anxiety disorder; Z90.49 Acquired absence of other specified parts of digestive tract
CPT/HCPCS: 36415; 71045; 74176; 80053; 81003; 83690; 85025; 93005; 94640; 96372; 99284; J1100; J1170; J7620

== ENCOUNTER 2018-09-01 02:00 | Emergency (ER) | payer MEDICAID ==
[~2018-09-01] VITALS: Ht 182.9 cm; Wt 83.8 kg
[2018-09-01 02:02] VITALS: BP 110/59
[2018-09-01 02:32] LABS: CULTURE INDICATED? YES; MICROSCOPIC INDICATED
[2018-09-01 02:41] LABS: AMPHETAMINE SCREEN, URINE Negative (Negative); BARBITURATE SCREEN, URINE Negative (Negative); BENZODIAZEPINE SCREEN, URINE Negative (Negative); CANNABINOID SCREEN, URINE Positive (Negative); COCAINE SCREEN, URINE Negative (Negative); METHADONE SCREEN, URINE Negative (Negative); OPIATE SCREEN, URINE Negative (Negative)
[2018-09-01] MEDS ORDERED: HYDROcodone/APAP 5/325 TABLET ONE (03:11)
[2018-09-01] MEDS ORDERED: HYDROcodone/APAP 5/325 TABLET PO ONE (03:30)
== END 2018-09-01 03:23 ==
LOC: ED 02:40
DX: N30.01 Acute cystitis with hematuria (principal); F17.200 Nicotine dependence, unspecified, uncomplicated
CPT/HCPCS: 80307; 81001; 87077; 87086; 87186; 99283

== ENCOUNTER 2019-01-02 14:41 | Emergency (ER) | payer MEDICAID ==
[~2019-01-02] VITALS: Ht 182.9 cm; Wt 80.2 kg
--- NOTE | 2019-01-02 15:08 | NUR ---
PT TO ROOM FROM [facility]. PT WITH SLURRED SPEECH, A/OX3, LEFT SIDED WEAKNESS. PT REPORTS SEIZURE THREE DAYS AGO, WITH PROGRESSIVE SPEECH PROBLEMS AND WEAKNESS OCCURRING AFTERWARDS. PT ADMITS TO METH USE THREE DAYS AGO WELL. NEURO EXAM WITH SIGNIFICANT LUE AND LLE WEAKNESS AND DRIFT BUT PT STATES HE WAS ABLE TO AMBULATE HERE TODAY. PT WITH NO SEIZURE HX, HX OF CVA-PT STATES HE HASN'T BEEN TAKING ANY MEDICATIONS. PT PLACED ON HEART MONITOR, BP CUFF, PULSE OX. ERP IN TO SEE PT. CALL LIGHT AND WARM BLANKET PROVIDED.
[2019-01-02] MEDS ORDERED: ACETAMINOPHEN 500 MG TABLET PO ONE (15:30)
[2019-01-02] MEDS ORDERED: ACETAMINOPHEN 500 MG TABLET ONE (15:39)
--- NOTE | 2019-01-02 15:41 | NUR ---
TYLENOL GIVEN FOR R KNEE PAIN-SWELLING AND BRUISE OBSERVED, UNKNOWN INJURY PER PT.
[2019-01-02 15:47] LABS: BASOPHILS # (AUTO) 0.03 x10^3/uL (0-0.1); BASOPHILS % (AUTO) 0 % (0-1); EOSINOPHILS # (AUTO) 0.08 x10^3/uL (0-0.4); EOSINOPHILS % (AUTO) 1 % (1-7); LYMPHOCYTES # (AUTO) 0.97 x10^3/uL (1-3.4); LYMPHOCYTES % (AUTO) 15 % (22-44); MD NO; MEAN CORPUSCULAR HEMOGLOBIN 30.4 pg (27.5-34.5); MEAN CORPUSCULAR HGB CONC 33.6 g/dL (33.2-36.2); MEAN CORPUSCULAR VOLUME 90.2 fL (81-97); MEAN PLATELET VOLUME 7.1 fL (7.4-10.4); MONOCYTES # (AUTO) 0.58 x10^3/uL (0.2-0.8); MONOCYTES % (AUTO) 9 % (2-9); NEUTROPHILS # (AUTO) 4.97 x10^3/uL (1.8-6.8); NEUTROPHILS % (AUTO) 75 % (42-75); PLATELET COUNT 418 x10^3/uL (130-400); RED CELL DISTRIBUTION WIDTH 15.3 % (9.4-14.8)
--- NOTE | 2019-01-02 15:57 | NUR ---
URINE COLLECTED/SENT TO LAB. CT RESULT BACK-NEGATIVE. SNACKS AND DRINKS PROVIDED PER ERP.
[2019-01-02 15:59] LABS: ALANINE AMINOTRANSFERASE 28 U/L (12-78); ALBUMIN 3.6 g/dL (3.4-5.0); ANION GAP 7 mmol/L (5-15); CALCIUM 8.6 mg/dL (8.5-10.1); CHLORIDE 107 mmol/L (98-107); CREATININE 0.88 mg/dL (0.7-1.3)
[2019-01-02 16:00] LABS: SALICYLATE LEVEL < 1.7 mg/dL (2.8-20.0)
[2019-01-02 16:01] LABS: ALKALINE PHOSPHATASE 188 U/L (45-117); BILIRUBIN,TOTAL 0.5 mg/dL (0.2-1.0); TOTAL PROTEIN 7.8 g/dL (6.4-8.2)
[2019-01-02 16:24] LABS: AMPHETAMINE SCREEN, URINE Positive (Negative); BARBITURATE SCREEN, URINE Negative (Negative); BENZODIAZEPINE SCREEN, URINE Negative (Negative); CANNABINOID SCREEN, URINE Positive (Negative); COCAINE SCREEN, URINE Negative (Negative); METHADONE SCREEN, URINE Negative (Negative); OPIATE SCREEN, URINE Negative (Negative)
[2019-01-02 16:45] VITALS: BP 121/61
== END 2019-01-02 16:49 | disposition home or self-care (01) ==
LOC: ED 16:40
DX: R53.1 Weakness (principal); F15.20 Other stimulant dependence, uncomplicated; T69.022A Immersion foot, left foot, initial encounter; T69.021A Immersion foot, right foot, initial encounter; F31.9 Bipolar disorder, unspecified; Z72.9 Problem related to lifestyle, unspecified; Z86.711 Personal history of pulmonary embolism
CPT/HCPCS: 36415; 70450; 80053; 80307; 85025; 93005; 99284

== ENCOUNTER 2019-02-12 12:10 | Emergency (ER) | payer MEDICAID ==
[~2019-02-12] VITALS: Ht 182.9 cm; Wt 82.1 kg
[~2019-02-12 12:10] MED LIST changes: +MELA5TAB14 PO; -MELA5TAB19 PO
[2019-02-12 13:37] VITALS: BP 135/73
[2019-02-12] MEDS ORDERED: TRILEPTAL (13:38)
--- NOTE | 2019-02-12 13:41 | NUR ---
PT TO ED FOR LOWER BACK AND NECK PAIN AFTER "SAVING INCAPASITATED FRIEND FROM [employer] YESTERDAY." PT CONNECTED TO MONITORS. VSS. PT UNABLE TO COMPLETE XR D/T PAIN. AWAITING EDMD ASSESSMENT.
[2019-02-12] MEDS ORDERED: HYDROcodone/APAP 5/325 TABLET ONE (14:14)
[2019-02-12] MEDS ORDERED: CYCLOBENZAPRINE 10 MG TABLET ONE (14:14)
[2019-02-12] MEDS ORDERED: CYCLOBENZAPRINE 10 MG TABLET PO ONE (14:30)
[2019-02-12] MEDS ORDERED: HYDROcodone/APAP 5/325 TABLET PO ONE (14:30)
[2019-04-05] MEDS ORDERED: QUET300T5 PO (23:21)
[2019-04-05] MEDS ORDERED: GABA600T7 PO (23:21)
[2019-04-05] MEDS ORDERED: PRAZ2CAP2 PO (23:21)
[2019-04-06] MEDS ORDERED: GABA300C10 PO (09:37)
[2019-04-06] MEDS ORDERED: MIRT15TA PO (09:39)
[2019-04-06] MEDS ORDERED: OXCA150T3 PO (09:39)
[2019-04-06] MEDS ORDERED: FOLI-17 PO (09:40)
[2019-04-06] MEDS ORDERED: CYAN-27 PO (09:41)
== END 2019-02-12 16:38 | disposition home or self-care (01) ==
LOC: ED 16:12
DX: S39.012A Strain of muscle, fascia and tendon of lower back, initial encounter (principal); S16.1XXA Strain of muscle, fascia and tendon at neck level, initial encounter; F31.9 Bipolar disorder, unspecified; Z72.9 Problem related to lifestyle, unspecified; F17.200 Nicotine dependence, unspecified, uncomplicated; W19.XXXA Unspecified fall, initial encounter; Y93.89 Activity, other specified; Y92.89 Other specified places as the place of occurrence of the external cause; Y99.8 Other external cause status
CPT/HCPCS: 72050; 72072; 72110; 99283